=== PATIENT | male | born 1990 | race Caucasian/White ===

== ENCOUNTER 2018-02-05 14:24 | Emergency (ER) | payer OTHER ==
[~2018-02-05] VITALS: Ht 170.2 cm; Wt 50.1 kg
[~2018-02-05 14:24] MED LIST: AZITHROMYCIN250 MG1 PO; Synthroid PO; TESSALON200 MG PO
[2018-02-05 17:12] VITALS: BP 116/69
== END 2018-02-05 17:12 | disposition home or self-care (01) ==
LOC: EME 14:24
DX: S61.206A Unspecified open wound of right little finger without damage to nail, initial encounter (principal); W26.8XXA Contact with other sharp object(s), not elsewhere classified, initial encounter; Y93.89 Activity, other specified
CPT/HCPCS: 99281; 99283